=== PATIENT | male | born 1975 | race African-American/Black ===

== ENCOUNTER → 2024-01-28 | Emergency (ER) | payer SELFPAY ==
[~2024-01-28] VITALS: Ht 180.3 cm; Wt 109.0 kg
[~2024-01-28] MED LIST: NIFE20CA MT
[2024-01-28 15:58] VITALS: O2SAT 99
[2024-01-28 17:37] VITALS: BP 142/88; PULSE 68; RESP 18; TEMP 98.5
== END ==
LOC: ER 16:04
DX: I10 Essential (primary) hypertension (principal); Z76.0 Encounter for issue of repeat prescription
CPT/HCPCS: 99283